=== PATIENT | male | born 1990 | race Caucasian/White ===

== ENCOUNTER 2017-07-31 21:35 | Emergency (ER) | payer OTHER ==
[2017-07-31 22:16] VITALS: BP 148/81
--- NOTE | 2017-07-31 22:52 | UC ---
Laceration HPI - HPI Summary HPI Summary: Pt was cutting cheese and injured left middle finger. Pt unable to get bleeding to stop so came to UC. knife not serrated tdap utd. No nail involvement. No other complaints No anticoagulations mild discomfort no analgesia taken pt's medications reviewed this visit - History Of Current Complaint Chief Complaint: UCLaceration Stated Complaint: L HAND FINGER LAC Time Seen by Provider: 07/31/17 22:42 Hx Obtained From: Patient Laceration Location: Finger Mechanism Of Injury: Sharp Trauma Onset/Duration: Sudden Onset Severity: Mild Pain Intensity: 2 Pain Scale Used: 0-10 Numeric - Allergies/Home Medications Allergies/Adverse Reactions: Allergies Allergy/AdvReac Type Severity Reaction Status Date / Time No Known Allergies Allergy Verified 07/31/17 22:15 Home Medications: Home Medications Ibuprofen TAB* [Advil TAB*] 400 mg PO ONCE PRN 07/31/17 [History Confirmed 07/31] PMH/Surg Hx/FS Hx/Imm Hx Previously Healthy: Yes - Surgical History Surgical History: None - Family History Known Family History: Positive: Hypertension - Social History Occupation: Student Alcohol Use: Occasionally Substance Use Type: None Smoking Status (MU): Never Smoked Tobacco - Immunization History Most Recent Tetanus Shot: <5 YEARS OF 07/31/17 Review of Systems Constitutional: Negative Skin: Other - laceration left middle finger All Other Systems Reviewed And Are Negative: Yes Physical Exam - Summary Physical Exam Summary: Vital Signs Reviewed: Yes A+Ox3, no distress Eyes: Conjunctiva Clear, ENT: Hearing grossly normal Neck: Supple Respiratory: Positive: No respiratory distress, No accessory muscle use Cardiovascular: CBT <2 sec Musculoskeletal Exam: LAM x 4 without difficulty Strength Intact, + flex/ext dip , pip, mcp without difficulty Neurological: Positive: Alert, + gross sensation finger tip Psychological: Positive: Normal Response To Family Skin: Positive: pt with thin flap laceration middle left finger, lateral aspect and edge of nail no nail involvement Triage Information Reviewed: Yes Vital Signs: Initial Vital Signs Temp 98 F 07/31/17 22:11 Pulse 64 07/31/17 22:11 Resp 16 07/31/17 22:11 BP 148/81 07/31/17 22:11 Pulse Ox 100 07/31/17 22:11 Laceration Repair - Laceration Repair 1 Description: Linear Modified For Repair: No Cleansing Completed Via Routine Prep: Yes Closure Material: Skin Adhesive Closure Method: Single Layer Laceration Course/Dx - Course/Dx Course Of Treatment: Pt with small flap abraison left middle finger, no nail involvement. slow oozing wound RN cleansed wound d/w pt repair option - pt requesing glue. wound dried, after hemostasis, applied skin adhesive with good approximation and satisfactory result. reviewed wt pt wound care, s/s infection. pt comfortable and in agreement with plan - Differential Dx - Laceration/Wound Provider Diagnoses: skin flap laceration Discharge - Sign-Out/Discharge Documenting (check all that apply): Discharge/Admit/Transfer - Discharge Plan Condition: Stable Disposition: HOME Patient Education Materials: Laceration (ED), Skin Adhesive Care (ED) [facility] - Additional Instructions: Okay to take ibuprofen (advil, Motrin) and tylenol every 3 hours for pain or fever keep wound clean and dry until tomorrow - then okay to get wet, pat dry monitor for signs of infection - redness, red streaking, drainage seek medical care with any questions or concerns - Billing Disposition and Condition Condition: STABLE Disposition: HOME
== END 2017-07-31 23:34 | disposition home or self-care (01) ==
LOC: UCEAST 21:35
DX: S61.213A Laceration without foreign body of left middle finger without damage to nail, initial encounter (principal); W26.0XXA Contact with knife, initial encounter; Y93.9 Activity, unspecified; Y92.9 Unspecified place or not applicable
CPT/HCPCS: 12001; 99202; G0463